=== PATIENT | female | born 1955 | race Caucasian/White ===

== ENCOUNTER → 2016-06-06 | Outpatient (CLI) | payer OTHER ==
[~2016-06-06] MED LIST: ATOR-22 PO; ATOR-54 PO; ATV/1 PO; BUPRTAB51 PO; CLB/200 PO; CLON1TAB3 PO; FLUO40CA8 PO; HYDR-5688 PO; LEVO100T7 PO; LISI-461 PO; MECL1TAB40 PO; METH-307 PO; MONT1TAB3 PO; NIAC500T11 PO; TORS10TA14 PO; TRAZ50TA35 PO
--- NOTE | 2016-06-06 15:49 | DIAGNOSTIC IMAGING REPORT ---
ULTRASOUND RIGHT UPPER EXTREMITY VENOUS CLINICAL HISTORY: Right arm pain and swelling. COMPARISON STUDY: No priors. TECHNIQUE: Real-time, grayscale, and color Doppler sonography of the deep veins of the right upper extremity is performed. Compression and augmentation were utilized. FINDINGS: There is no sonographic evidence of deep venous thrombosis identified in the right upper extremity. The right internal jugular, axillary, and brachial veins are patent and normally compressible. Normal venous waveforms and augmentation are seen within the right subclavian vein. The cephalic and basilic veins are clear. The visualized radial and ulnar veins are patent. IMPRESSION: There is no sonographic evidence of deep venous thrombosis identified in the right upper extremity. Electronically signed by: Job Ramirez M.D. 06/06/2016 3:48 PM Dictated Date/Time: 06/06/2016 3:47 PM
== END | disposition home or self-care (01) ==
LOC: C.ULTR 15:02
PROVIDERS: ATTEND Orthopaedic Surgery
DX: M79.601 Pain in right arm (principal); M79.89 Other specified soft tissue disorders